=== PATIENT | female | born 2000 | race Caucasian/White ===

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

== ENCOUNTER 2018-12-13 00:40 | Emergency (ER) | payer BC ==
[~2018-12-13] VITALS: Ht 165.1 cm; Wt 74.8 kg
[2018-12-13 00:45] VITALS: BP_SYST 143
--- NOTE | 2018-12-13 00:45 | NUR ---
Patient triaged and placed in waiting room. VSS and patient appears in no acute distress at this time. Accompanied by boy friend, awaiting available bed, and MD notified of need for MSE.
[2018-12-13 01:30] LABS: BASOPHILS % (AUTO) 0.6 % (0.0-2.0); EOSINOPHILS # (AUTO) 0.2 K/uL (0.0-0.4); HEMATOCRIT 38.5 % (36-48); LYMPHOCYTES # (AUTO) 4.3 K/uL (1.0-5.5); LYMPHOCYTES % (AUTO) 53.6 % (20.5-51.5); MEAN CORPUSCULAR HEMOGLOBIN 29 pg (27-31); MEAN CORPUSCULAR HGB CONC 34 % (32-36); MEAN CORPUSCULAR VOLUME 86 fL (79.0-98.0); MONOCYTES # (AUTO) 0.5 K/uL (0.0-1.0); MONOCYTES % (AUTO) 6.3 % (1.7-9.3); NEUTROPHILS % (AUTO) 37.5 % (40.0-70.0); PLATELET COUNT (AUTO) 322 K/uL (130-430); RED BLOOD CELL COUNT(AUTO) 4.49 MIL/uL (4.2-6.2); RED CELL DISTRIBUTION WIDTH 14.2 % (9.0-15.0); WHITE BLOOD COUNT (AUTO) 7.9 K/uL (4.5-11.0)
[2018-12-13 01:36] LABS: BILIRUBIN,URINE NEGATIVE (NEGATIVE); BLOOD, URINE 1+ (NEGATIVE); CLARITY/URINE CLEAR (CLEAR); COLOR,URINE YELLOW (YELLOW); GLUCOSE,URINE TRACE (NEGATIVE); KETONES,URINE TRACE (NEGATIVE); LEUKOCYTE ESTERASE ,URINE NEGATIVE (NEGATIVE); NITRITE, URINE POSITIVE (NEGATIVE); PH,URINE 5.5 (5.0-8.0); PROTEIN URINE TRACE (NEGATIVE)
[2018-12-13 01:47] LABS: BACTERIA,URINE MANY /HPF (None Seen); WBC,URINE 0-3 /HPF (0-3)
[2018-12-13 01:47] LABS: CALCIUM 9.1 mg/dL (8.4-11.0); CREATININE 0.77 mg/dL (0.55-1.30); POTASSIUM 3.8 mmol/L (3.5-5.1)
[2018-12-13 01:51] LABS: ALBUMIN 3.5 g/dL (3.4-4.8); TOTAL BILIRUBIN 0.2 mg/dL (0.0-1.0)
--- NOTE | 2018-12-13 03:55 | NUR ---
patient BIB boyfriend with pelvic pain since thrusday and flank pain/abd pain since this morning. patient states she is a virgin but has routine STD checks just to be safe. patient has pain upon palpation. patient denies constipation or n/v/d. patient has no other complaint or injury at this time.
--- NOTE | 2018-12-13 03:57 | NUR ---
Patient to ER bed 8 to gown for evaluation. Side rails up. Report given to Romelia BROWN.
--- NOTE | 2018-12-13 04:00 | NUR ---
ER at bedside examining patient.
[2018-12-13] MEDS ORDERED: HYDROcodone/ACETAMIN 5-325 MG TAB (NORCO/ VICODIN) PO ONE (05:00)
[2018-12-13] MEDS ORDERED: KETOROLAC TROMETHAMINE 60 MG/2 ML VIAL IM ONE (05:00)
--- NOTE | 2018-12-13 05:39 | NUR ---
vaginal exam preformed by Dr. Randolph with female nurse assist. patient refused digital exam. patient states she is a virgin.
--- NOTE | 2018-12-13 06:35 | NUR ---
Patient given written and verbal discharge instructions and verbalizes understanding. ER MD discussed with patient the results and treatment provided. Patient in stable condition. ID arm band removed. Rx of macrobid given. Patient educated on pain management and to follow up with PMD. Pain Scale 0/10. Opportunity for questions provided and answered. Medication side effect fact sheet provided.
[2018-12-13 06:54] VITALS: BP_SYST 125
== END 2018-12-13 06:54 | disposition home or self-care (01) ==
LOC: SED 00:40
DX: N39.0 Urinary tract infection, site not specified (principal); Z87.442 Personal history of urinary calculi; Z88.0 Allergy status to penicillin
CPT/HCPCS: 36415; 80053; 81000-TC; 81025; 83690-TC; 85025; 87086; 99283